=== PATIENT | male | born 1980 | race Two or more races ===

== ENCOUNTER 2019-12-20 16:11 | Emergency (ER) | payer OTHER ==
[~2019-12-20] VITALS: Ht 182.9 cm; Wt 79.5 kg
[2019-12-20 17:04] VITALS: BP 122/70
== END 2019-12-20 17:05 | disposition home or self-care (01) ==
LOC: EMS 16:11
DX: F41.9 Anxiety disorder, unspecified (principal); J45.909 Unspecified asthma, uncomplicated
CPT/HCPCS: Z7502